=== PATIENT | male | born 1950 | race Caucasian/White ===

== ENCOUNTER 2016-08-13 21:09 | Emergency (ER) | payer MEDICARE, OTHER ==
[~2016-08-13] VITALS: Ht 172.7 cm; Wt 75.0 kg
[2016-08-13 21:15] VITALS: BP 150/77; PULSE 88; RESP 18; TEMP 99.9; O2SAT 96
[2016-08-13] MEDS ORDERED: SODIUM CHLORIDE 0.9% FLUSH 5 ML FLUSH IVF PRN (23:15)
[2016-08-13 23:42] LABS: AUTOMATED NEUTROPHIL # 6.2 TH/MM3 (1.8-7.7); BASOPHIL # 0.1 TH/MM3 (0-0.2); BASOPHIL % 0.6 % (0.0-2.0); EOSINOPHIL # 0.4 TH/MM3 (0-0.4); EOSINOPHIL % 4.7 % (0.0-4.0); HEMATOCRIT 38.1 % (39.0-51.0); LYMPH % 19.2 % (9.0-44.0); LYMPHOCYTE # 1.8 TH/MM3 (1.0-4.8); MEAN CELL VOLUME 86.7 FL (80.0-100.0); MEAN CORPUSCULAR HEMOGLOBIN 29.8 PG (27.0-34.0); MEAN CORPUSCULAR HGB CONC 34.4 % (32.0-36.0); MONO % 8.4 % (0.0-8.0); NEUT % 67.1 % (16.0-70.0); PLATELET COUNT 255 TH/MM3 (150-450); RED CELL DISTRIBUTION WIDTH 12.7 % (11.6-17.2); WHITE BLOOD COUNT 9.3 TH/MM3 (4.0-11.0)
[2016-08-13 23:50] LABS: HEMO FLAGS DIFF FINAL
[2016-08-13 23:52] LABS: CHLORIDE 106 MEQ/L (98-107); POTASSIUM 4.1 MEQ/L (3.5-5.1); SODIUM (NA) 140 MEQ/L (136-145)
[2016-08-13 23:56] LABS: ANION GAP 9 MEQ/L (5-15); BLOOD UREA NITROGEN 23 MG/DL (7-18); MAGNESIUM 2.2 MG/DL (1.5-2.5)
[2016-08-13 23:59] LABS: ALT (GPT) 25 U/L (12-78); AST (GOT) 18 U/L (15-37); GLOMERULAR FILTRATION RATE 75 ML/MIN (>89)
[2016-08-14] LABS: TOTAL BILIRUBIN ADULT 0.2 MG/DL (0.2-1.0)
[2016-08-14] LABS: GLUCOSE,URINE NEG (NEG); KETONE, URINE NEG (NEG); NITRITE,URINE NEG (NEG); PH, URINE 5.5 (5.0-8.5)
[2016-08-14 00:01] LABS: ALKALINE PHOSPHATASE 76 U/L (45-117)
--- NOTE | 2016-08-14 00:13 | PD ---
HPI Chief Complaint: GI Complaint Time Seen by Provider: 23:05 Travel History International Travel<30 days: No Contact w/Intl Traveler<30days: No Traveled to known affect area: No History of Present Illness HPI 66-year-old male presents to the emergency department by private transportation for 5 days of diarrhea. Patient has had diarrhea 3-5 times daily over the past 5 days. No fever no chills no nausea no vomiting. Patient denies abdominal pain. Patient denies any dietary indiscretion well water ingestion or foreign travel. Patient has noted that his stool appears dark. Patient does not take ibuprofen on a regular basis. Patient is not diabetic. Patient does have extensive history of previous hernia repair hypertension and CAD with stent placement. Pain is 0/10 intensity. Patient is unable to identify exacerbating or alleviating factors. Family members having the same foods and had no similar symptoms. Patient did not contact his primary care provider Dr. Byers. [facility] Past Medical History Narrative Medical CAD cardiac stent herniorrhaphy tonsillectomy prostatectomy no tobacco use no alcohol use nursing notes reviewed Hx Anticoagulant Therapy: Yes Heart Rhythm Problems: Yes Cardiovascular Problems: Yes (stents) Respiratory: Yes (fluid in lungs) Tetanus Vaccination: > 5 Years Influenza Vaccination: Yes Past Surgical History Abdominal Surgery: Yes (hernia) Coronary Stent: Yes (x5) Tonsillectomy: Yes Other Surgery: Yes (prostate) Social History Alcohol Use: No Tobacco Use: No Substance Use: No Allergies-Medications (Allergen,Severity, Reaction): Coded Allergies: No Known Allergies (Unverified , 08/13/16) Reported Meds & Prescriptions Reported Meds & Active Scripts Active Reported Nitrostat SL (Nitroglycerin) 0.4 Mg Subl 0.4 Mg SL DIRECTED PRN 1 tablet under the tongue as needed for chest pain. Repeat every 5 minutes for a total of 3 DOSES or call 911 if NO relief. Multivitamin Men (Multiple Vitamins W/ Minerals) 1 Tab Tab 1 Tab PO DAILY Lisinopril 10 Mg Tab 10 Mg PO DAILY Lamotrigine 100 Mg Tab 100 Mg PO TID Isosorbide Mononitrate ER (Isosorbide Mononitrate) 60 Mg Tab 60 Mg PO DAILY Glycopyrrolate 2 Mg Tab 2 Mg PO BID Gabapentin 800 Mg Tab 800 Mg PO QID Furosemide 40 Mg Tab 40 Mg PO DAILY Famotidine 40 Mg Tab 40 Mg PO HS Carvedilol 12.5 Mg Tab 12.5 Mg PO BID Cardura (Doxazosin Mesylate) 2 Mg Tab 2 Mg PO DAILY Atorvastatin (Atorvastatin Calcium) 20 Mg Tab 20 Mg PO HS Aspirin 81 Mg Chew 81 Mg CHEW DAILY Albuterol Neb (Albuterol Sulfate) 2.5 Mg/0.5 Ml Neb 2.5 Mg NEB QID NEB Note: The Albuterol Sulfate Inhalation Solution is concentrated and must be diluted. Read complete instructions carefully before using. Review of Systems Except as stated in HPI: all other systems reviewed are Neg General / Constitutional: No: Fever, Chills HENT: No: Congestion Cardiovascular: No: Chest Pain or Discomfort Respiratory: No: Shortness of Breath Gastrointestinal: Positive: Diarrhea, No: Nausea, Vomiting, Abdominal Pain, Hematochezia, Loss of Appetite Genitourinary: No: Urgency, Frequency, Dysuria Musculoskeletal: No: Myalgias, Arthralgias Skin: No Rash Neurologic: No: Weakness, Dizziness, Syncope Psychiatric: No: Anxiety Endocrine: No: Heat Intolerance Hematologic/Lymphatic: No: Easy Bruising Physical Exam Narrative GENERAL: Well-developed well-nourished pleasant male in no acute distress no respiratory distress SKIN: Warm and dry. HEAD: Normocephalic. EYES: No scleral icterus. No injection or drainage. NECK: Supple, trachea midline. No JVD or lymphadenopathy. CARDIOVASCULAR: Regular rate and rhythm without murmurs, gallops, or rubs. RESPIRATORY: Breath sounds equal bilaterally. No accessory muscle use. GASTROINTESTINAL: Abdomen soft, non-tender, nondistended. MUSCULOSKELETAL: No cyanosis, or edema. BACK: Nontender without obvious deformity. No CVA tenderness. Data Data Last Documented VS Vital Signs Date Time Temp Pulse Resp B/P Pulse Ox O2 Delivery O2 Flow Rate FiO2 08/14/16 02:00 78 16 118/74 97 08/14/16 00:16 Room Air 08/13/16 21:15 99.9 Orders Complete Blood Count With Diff (08/13/16 23:05) Comprehensive Metabolic Panel (08/13/16 23:05) Urinalysis - C+S If Indicated (08/13/16 23:05) Lipase (08/13/16 23:05) Iv Access Insert/Monitor (08/13/16 23:05) Ecg Monitoring (08/13/16 23:05) Oximetry (08/13/16 23:05) Sodium Chloride 0.9% Flush (Ns Flush) (08/13/16 23:15) C Diff Toxin Pcr (08/13/16 23:05) Enteric Path (Stool) (08/13/16 23:05) Lactic Acid (08/13/16 23:05) Blood Culture (08/13/16 23:05) Magnesium (Mg) (08/13/16 23:05) Ct Abd/Pel W Iv Contrast(Rout) (08/14/16 00:24) Iohexol 350 Inj (Omnipaque 350 Inj) (08/14/16 00:30) Sodium Chlor 0.9% 1000 Ml Inj (Ns 1000 M (08/14/16 01:00) Labs Laboratory Tests Test 08/13/16 08/13/16 23:30 23:35 Urine Color YELLOW Urine Turbidity CLEAR Urine pH 5.5 Urine Specific [place] 1.022 Urine Protein NEG mg/dL Urine Glucose (UA) NEG mg/dL Urine Ketones NEG mg/dL Urine Occult Blood MOD Urine Nitrite NEG Urine Bilirubin NEG Urine Leukocyte Esterase NEG Urine RBC 4-9 /hpf Urine WBC 0-2 /hpf Urine Squamous Epithelial 0-5 /hpf Cells Urine Amorphous Sediment SMALL Urine Hyaline Casts 0-2 /lpf Urine Mucus MOD /lpf Microscopic Urinalysis Comment CULT NOT INDICATED White Blood Count 9.3 TH/MM3 Red Blood Count 4.40 MIL/MM3 Hemoglobin 13.1 GM/DL Hematocrit 38.1 % Mean Corpuscular Volume 86.7 FL Mean Corpuscular Hemoglobin 29.8 PG Mean Corpuscular Hemoglobin 34.4 % Concent Red Cell Distribution Width 12.7 % Platelet Count 255 TH/MM3 Mean Platelet Volume 8.1 FL Neutrophils (%) (Auto) 67.1 % Lymphocytes (%) (Auto) 19.2 % Monocytes (%) (Auto) 8.4 % Eosinophils (%) (Auto) 4.7 % Basophils (%) (Auto) 0.6 % Neutrophils # (Auto) 6.2 TH/MM3 Lymphocytes # (Auto) 1.8 TH/MM3 Monocytes # (Auto) 0.8 TH/MM3 Eosinophils # (Auto) 0.4 TH/MM3 Basophils # (Auto) 0.1 TH/MM3 CBC Comment DIFF FINAL Differential Comment Sodium Level 140 MEQ/L Potassium Level 4.1 MEQ/L Chloride Level 106 MEQ/L Carbon Dioxide Level 25.0 MEQ/L Anion Gap 9 MEQ/L Blood Urea Nitrogen 23 MG/DL Creatinine 1.00 MG/DL Estimat Glomerular Filtration 75 ML/MIN Rate Random Glucose 92 MG/DL Lactic Acid Level 0.7 mmol/L Calcium Level 8.7 MG/DL Magnesium Level 2.2 MG/DL Total Bilirubin 0.2 MG/DL Aspartate Amino Transf 18 U/L (AST/SGOT) Alanine Aminotransferase 25 U/L (ALT/SGPT) Alkaline Phosphatase 76 U/L Total Protein 7.2 GM/DL Albumin 3.5 GM/DL Lipase 147 U/L MDM Medical Decision Making Medical Screen Exam Complete: Yes Emergency Medical Condition: Yes Medical Record Reviewed: Yes Interpretation(s) lactic acid: 0.7, not elevated Last Impressions Abdomen/Pelvis CT 08/14/16 0024 Signed Impressions: Service Date/Time: Sunday, August 14, 2016 00:15 - CONCLUSION: 1. No acute abnormality seen. 2. Colonic diverticula. 3. Left renal cyst. 4. 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 Otis Nguyễn MD CBC & BMP Diagram 08/13/16 23:35 Vital Signs Date Time Temp Pulse Resp B/P Pulse Ox O2 Delivery O2 Flow Rate FiO2 08/14/16 00:16 74 18 115/66 95 Room Air 08/13/16 21:15 99.9 88 18 150/77 96 Differential Diagnosis Diarrheal illness, gastroenteritis, food borne illness, colitis, diverticulitis , GI bleed, dehydration Narrative Course IV access obtained specimens collected and sent for resulting; patient administered IV fluids Patient was able to provide a stool specimen was sent for C. difficile and enteric pathogens Hemoccult test performed which was negative for blood Patient remains clinically stable in the emergency department Patient administered IV fluid bolus and aware of lab results and imaging results in stable for outpatient management; patient desirous of being discharged to home is aware of need to follow clear liquid diet and to follow- up with primary care provider. At this time no indication for antibiotic. Diagnosis Primary Impression: Diarrheal stools Qualified Code: R19.7 - Diarrhea, unspecified type Referrals: Family Practice Physician call for appointment Patient Instructions: General Instructions Additional Instructions: Follow clear liquid diet for next 12-24 hours advance as tolerated to bland/ Bharath diet and then advance as tolerated to regular diet Monitor temperature for fever take acetaminophen every 4 hours as needed for fever 100.4F or greater Follow-up with your primary care provider Return to the emergency department for any concerns or change in condition Med/Other Pt SpecificInfo: No Change to Meds Disposition: 01 DISCHARGE HOME Condition: Stable Adenike Aragon MD Aug 14, 2016 00:13
[2016-08-14 00:16] VITALS: BP 115/66; PULSE 74; RESP 18; O2SAT 95
[2016-08-14 00:18] LABS: BLOOD, URINE MOD (NEG); URINE COLOR YELLOW (YELLW/STRAW)
[2016-08-14 00:19] LABS: MUCUS URINE MOD /lpf (OCC)
[2016-08-14 00:20] LABS: SQUAMOUS EPITHELIAL CELL URINE 0-5 /hpf (0-5)
[2016-08-14 00:21] LABS: COMMENT (UR) CULT NOT INDICATED; CULTURE IF INDICATED CULT NOT INDICATED; HYALINE CAST, URINE 0-2 /lpf (RARE); WBC, URINE 0-2 /hpf (0-5)
[2016-08-14] MEDS ORDERED: IOHEXOL 350 MG/ML 10 ML VIAL (for RAD DIAG) IV ONE (00:30)
--- NOTE | 2016-08-14 00:48 | RADHPO ---
EXAM DATE/TIME: 08/14/2016 00:15 [facility] COMPARISON: No previous studies available for comparison. INDICATIONS : Abdominal pain. Diarrhea. IV CONTRAST: 75 cc Omnipaque 350 (iohexol) IV ORAL CONTRAST: No oral contrast ingested. RADIATION DOSE: 13.52 CTDIvol (mGy) MEDICAL HISTORY : Cardiovascular disease. Hernia. SURGICAL HISTORY : Coronary artery stent. ENCOUNTER: Initial ACUITY: 4 - 6 days PAIN SCALE: 3/10 LOCATION: Bilateral abdomen and pelvis. TECHNIQUE: Volumetric scanning of the abdomen and pelvis was performed. Using automated exposure control and ad justment of the mA and/or kV according to patient size, radiation dose was kept as low as reasonably achievable to obtain optimal diagnostic quality images. FINDINGS: LOWER LUNGS: The visualized lower lungs are clear. LIVER: Homogeneous density without lesion. There is no dilation of the biliary tree. No calcified gallston es. SPLEEN: Normal size without lesion. PANCREAS: Within normal limits. KIDNEYS: Several renal cysts are seen at the inferior left kidney. No hydronephrosis or renal stones are seen. ADRENAL GLANDS: Within normal limits. VASCULAR: There is no aortic aneurysm. Vascular calcifications are seen throughout the arterial system. BOWEL/MESENTERY: Scattered colonic diverticula without significant inflammatory changes seen particularly in the sigmo id region. ABDOMINAL WALL: Within normal limits. RETROPERITONEUM: There is no lymphadenopathy. BLADDER: No wall thickening or mass. REPRODUCTIVE: Prostatic calcifications are present. INGUINAL: There is no lymphadenopathy or hernia. MUSCULOSKELETAL: There is degenerative change in the lumbar spine. CONCLUSION: 1. No acute abnormality seen. 2. Colonic diverticula. 3. Left renal cyst. 4. 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 Otis Nguyễn MD on August 14, 2016 at 0:41 Board Certified Radiologist. This report was verified electronically.
[2016-08-14] MEDS ORDERED: LAMO100T PO (01:00)
[2016-08-14] MEDS ORDERED: FAMO40TA PO (01:00)
[2016-08-14] MEDS ORDERED: GLYC1TAB15 PO (01:00)
[2016-08-14] MEDS ORDERED: SODIUM CHLOR 0.9% 1000 ML INJ 1,000 ML IV ONE (01:00)
[2016-08-14] MEDS ORDERED: MULT1TAB85 PO (01:00)
[2016-08-14] MEDS ORDERED: FURO40TA PO (01:00)
[2016-08-14] MEDS ORDERED: LISI10TA3 PO (01:00)
[2016-08-14] MEDS ORDERED: CARD2TAB PO (01:00)
[2016-08-14] MEDS ORDERED: GABA800T PO (01:00)
[2016-08-14] MEDS ORDERED: ATOR20TA15 PO (01:00)
[2016-08-14] MEDS ORDERED: NITR0.4S SL (01:00)
[2016-08-14] MEDS ORDERED: ASPI81CH CHEW (01:00)
[2016-08-14] MEDS ORDERED: ISOS60TA PO (01:00)
[2016-08-14] MEDS ORDERED: ALBU.5I NEB (01:00)
[2016-08-14] MEDS ORDERED: CARV12.52 PO (01:00)
[2016-08-14 02:00] VITALS: BP 118/74
[2016-08-14 11:24] LABS: C. DIFF EPI 027 PRESUMPTIVE NEGATIVE (NEGATIVE); C. DIFF TOXIN PCR NEGATIVE (NEGATIVE)
== END 2016-08-14 02:11 | disposition home or self-care (01) ==
LOC: PHED 21:09 → PHEFT 08-14 02:11
DX: R19.7 Diarrhea, unspecified (principal); I25.10 Atherosclerotic heart disease of native coronary artery without angina pectoris; Z95.5 Presence of coronary angioplasty implant and graft; I10 Essential (primary) hypertension; Z79.01 Long term (current) use of anticoagulants
CPT/HCPCS: 74177; 80053; 81001; 83605; 83690; 83735; 85025; 87040; 87493; 87506; 99284; J7030; Q9967